=== PATIENT | female | born 1985 | race Caucasian/White ===

== ENCOUNTER 2016-09-26 23:24 | Emergency (ER) | payer SELFPAY ==
[2016-09-26 23:42] VITALS: BP 109/64
[2016-09-27] LABS: Basophils % (Auto) 0.1 % (0.0-1.8); Eosinophils % (Auto) 0.1 % (0.0-4.3); Hematocrit 40.3 % (30.3-42.9); Hemoglobin 13.5 gm/dl (10.1-14.3); Mean Corpuscular HGB Conc 34 % (30-34); Mean Corpuscular Hemoglobin 31 pg (28-32); Mean Corpuscular Volume 93 fl (79-97); Platelet Count 153 K/mm3 (140-440); Red Blood Count 4.36 M/mm3 (3.65-5.03); Red Cell Distribution Width 13.1 % (13.2-15.2); White Blood Count 9.6 K/mm3 (4.5-11.0)
[2016-09-27 00:19] LABS: Amylase 139 units/L (27-131); BUN/Creatinine Ratio 15.71; Blood Urea Nitrogen 11 mg/dL (7-17); Calcium 9.4 mg/dL (8.4-10.2); Carbon Dioxide 28 mmol/L (22-30); Chloride 98.3 mmol/L (98-107); Glucose 126 mg/dL (65-100); Lipase 134 units/L (13-60); Potassium 3.9 mmol/L (3.6-5.0); Sodium 141 mmol/L (137-145)
[2016-09-27 00:22] LABS: Anion Gap 19 mmol/L
== END 2016-09-27 04:00 | disposition left against medical advice (07) ==
LOC: ED 23:24
DX: R42 Dizziness and giddiness (principal); R11.10 Vomiting, unspecified; Z53.21 Procedure and treatment not carried out due to patient leaving prior to being seen by health care provider
CPT/HCPCS: 36415; 80048; 82150; 83690; 84703; 85025; 93005; 93010